=== PATIENT | female | born 1960 | race Caucasian/White ===

== ENCOUNTER 2025-01-02 07:53 | Emergency (ER) | payer MEDICARE, OTHER ==
[~2025-01-02] VITALS: Ht 172.7 cm; Wt 82.0 kg
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
[2025-01-02] MEDS: HYDROcodone-ACET 10/325MG TAB PO ONE (08:21)
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
[2025-01-02 10:00] VITALS: BP 131/78; PULSE 72; RESP 17; TEMP 97.5; O2SAT 99
[2025-01-02] MEDS ORDERED: HYDR-4902 PO (10:00)
--- NOTE | 2025-01-02 19:08 | ECG ---
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
== END 2025-01-02 10:06 | disposition home or self-care (01) ==
LOC: EDBD 07:53 → ER 07:53
DX: S39.012A Strain of muscle, fascia and tendon of lower back, initial encounter (principal); S29.011A Strain of muscle and tendon of front wall of thorax, initial encounter; S80.01XA Contusion of right knee, initial encounter; I10 Essential (primary) hypertension; G89.29 Other chronic pain; F41.9 Anxiety disorder, unspecified; Z79.899 Other long term (current) drug therapy; Z91.040 Latex allergy status; Z88.2 Allergy status to sulfonamides; Z88.1 Allergy status to other antibiotic agents; Z88.0 Allergy status to penicillin; Z79.891 Long term (current) use of opiate analgesic; V89.2XXA Person injured in unspecified motor-vehicle accident, traffic, initial encounter; Y93.89 Activity, other specified; Y92.488 Other paved roadways as the place of occurrence of the external cause; Y99.8 Other external cause status
CPT/HCPCS: 71046; 72100; 73562; 93005